=== PATIENT | female | born 1960 | race Caucasian/White ===

== ENCOUNTER → 2020-06-21 | Outpatient (CLI) | payer OTHER | LOC: SJCVCIMAG 07:43 | PROVIDERS: ATTEND Internal Medicine | DX: I35.1 Nonrheumatic aortic (valve) insufficiency (principal); R00.0 Tachycardia, unspecified; I49.3 Ventricular premature depolarization; J45.909 Unspecified asthma, uncomplicated; R01.1 Cardiac murmur, unspecified; I10 Essential (primary) hypertension; Z79.899 Other long term (current) drug therapy ==

== ENCOUNTER → 2021-08-18 | Outpatient (CLI) | payer OTHER | LOC: CAT 09:48 | PROVIDERS: ATTEND Internal Medicine | DX: J98.11 Atelectasis (principal); J98.4 Other disorders of lung; I34.8 Other nonrheumatic mitral valve disorders ==